=== PATIENT | male | born 1930 | race Caucasian/White ===

== ENCOUNTER 2019-05-08 23:42 | Emergency (ER) | payer MEDICARE, OTHER ==
[~2019-05-08] VITALS: Ht 167.6 cm; Wt 77.1 kg
--- NOTE | 2019-05-09 00:36 | NUR ---
MYRON FROM [facility]. TO ER BED 7. AAOX3. NAD NOTED. NO RESP DISTERESS NOTED. PT HAD A CHEST XRAY DONE THE FACILITY AND RECOMMENDED TO RULE OUT TB. PT WAS SENT FOR ABNORMAL XRAY RESULT. AT BEDSIDE. AWAITING ORDERS
--- NOTE | 2019-05-09 00:43 | NUR ---
PT TO CT ON [facility]
--- NOTE | 2019-05-09 02:31 | NUR ---
CALLED [facility] FOR TRANSPORTATION. ETA 30MIN. TRIP NUMBER [phone]
--- NOTE | 2019-05-09 03:01 | NUR ---
[facility] AT BEDSIDE FOR TRANSPORT BACK TO FACILITY. PT IS MEDICALLY CLEARED AND STABLE [facility] TRANSPORT.
[2019-05-09 03:02] VITALS: BP 141/83
--- NOTE | 2019-05-09 03:11 | NUR ---
REPORT GIV[facility] TO [facility]
== END 2019-05-09 03:04 | disposition home or self-care (01) ==
LOC: ER 23:50
DX: J94.8 Other specified pleural conditions (principal); F03.90 Unspecified dementia, unspecified severity, without behavioral disturbance, psychotic disturbance, mood disturbance, and anxiety; K21.9 Gastro-esophageal reflux disease without esophagitis; M62.81 Muscle weakness (generalized)
CPT/HCPCS: 71250-TC